=== PATIENT | male | born 1955 | race Caucasian/White ===

== ENCOUNTER 2022-02-19 14:35 | Emergency (ER) | payer SELFPAY ==
[~2022-02-19] VITALS: Ht 190.5 cm; Wt 80.7 kg
[2022-02-19 14:35] VITALS: BP 174/102
--- NOTE | 2022-02-19 14:35 | NUR ---
ARRIVAL PATIENT ARRIVED TO ED6 AMBULATORY, C/O SHORTNESS OF BREATH OFF AND ON FOR THE PAST 5 WEEKS, HAS BEEN SEEN BY HIS PCP IN [place] AND GIVEN INHALERS AND ANTIBIOTICS, PATIENT FEELS LIKE NOTHING IS HELPING, CAME TO THIS ED FOR FURTHER EVAL, VITAL SIGNS TAKEN AN DOCTOR NOTIFIED OF PATIENT'S ARRIVAL.
[2022-02-19] MEDS ORDERED: SOLU-MEDROL IM STA (14:46)
[2022-02-19] MEDS ORDERED: DUO 0.5-3(2.5) MG/3 ML IH STA (14:46)
--- NOTE | 2022-02-19 14:48 | PCM.EKG ---
[facility] Test Date: 2022-02-19 Test Time: 14:39:15 Pat Name: MICHELLE NAGEL Department: Room: Gender: M Senior Strategy Analyst: EC : 1955 Requested By: JAKUB KRUSE Order Number: [id number] Reading MD: Liborio Kruse Measurements Intervals [place] Rate: 102 P: 115 SC: 151 QRS: -74 QRSD: 101 T: 45 QT: 337 QTc: 439 Interpretive Statements Sinus tachycardia Probable left atrial enlargement Left anterior fascicular block Abnormal R-wave progression, late transition No previous ECG available for comparison Electronically Signed On 02-19-2022 15:40:13 CDT by Liborio Kruse Please click the below link to view image of tracing.
[2022-02-19] MEDS ORDERED: SOLU-MEDROL ONE (14:53)
[2022-02-19] MEDS ORDERED: DUO 0.5-3(2.5) MG/3 ML IH ONE (14:53)
[2022-02-19 14:55] LABS: BASOPHIL % 0.1 % (0.0-0.2); EOSINOPHIL % 0.2 % (0.0-5.0); LYMPHOCYTES % 10.2 % (24.0-44.0); MEAN CORP HGB 30.1 pg (26-34); MONOCYTES # 0.8 10^3/uL (0.3-0.8); MONOCYTES % 5.9 % (5.0-12.0); NEUTROPHIL # 10.6 10^3/uL (1.8-7.7); NEUTROPHILS % 83.5 % (41.0-85.0); PLATELET COUNT 307 10^3/uL (150-400); RED CELL DISTRIBUTION WIDTH 13.1 % (11.5-14.5)
[2022-02-19 15:21] LABS: CARBON DIOXIDE 28.4 mmol/L (20.0-32)
[2022-02-19] MEDS ORDERED: NS 1000ML 1,000 ML STA (15:24)
[2022-02-19] MEDS ORDERED: NS 1000ML 1,000 ML ONE (15:38)
--- NOTE | 2022-02-19 15:49 | ER.PDOC ---
General Chief Complaint: Dyspnea/Respdistress Stated Complaint: SOB Time seen by MD: 14:40 Source: patient Exam Limitations: no limitations History of Present Illness Initial Comments Patient is a 66-year-old man who states that he has no past medical problems but presents with about 2 months worth of shortness of breath that acutely worsened over the past 5 days. Patient states that he is currently on antibiotics doxycycline forPneumonia and has never been told that he has COPD but has been a lifelong 2 time pack-a-day smoker. Patient states that he has some mild shortness of breath with associated nonproductive cough made worse with activity better with rest. Patient states that the antibiotics have not really helped him very much so he decided to come to the ER for more assessment.Patient denies any fevers Allergies: Coded Allergies: No Known Allergies (Unverified , 02/19/22) Home Meds No Active Prescriptions or Reported Meds Past Medical History Medical History: no pertinent history Surgical History: appendectomy, other Family History Significant Family History: no pertinent family hx Social History Smoking: greater than 1 pack/day Alcohol Use: none Drug Use: none Reviewed Nursing Reviewed: Vital Signs, Abn. Noted, Nursing Assessment Review of Systems Constitutional: malaise EENTM: denies no symptoms reported, denies see HPI, denies eye pain, denies blurred vision, denies tearing, denies double vision, denies ear pain, denies ea r discharge, denies nose pain, denies nose congestion, denies throat pain, denies throat swelling, denies mouth pain, denies mouth swelling, denies other Respiratory: cough, shortness of breath Cardiovascular: denies no symptoms reported, denies see HPI, denies chest pain, denies edema, denies palpitations, denies syncope, denies other Gastrointestinal: denies no symptoms reported, denies see HPI, denies abdominal pain, denies constipation, denies diarrhea, denies nausea, denies vomiting, denies other Genitourinary: denies no symptoms reported, denies see HPI, denies discharge, denies dysuria, denies frequency, denies hematuria, denies pain, denies other Musculoskeletal: denies no symptoms reported, denies see HPI, denies back pain, denies gout, denies joint pain, denies joint swelling, denies muscle pain, denies muscle stiffness, denies neck pain, denies other Skin: denies no symptoms reported, denies see HPI, denies change in color, denies change in hair/nails, denies dryness, denies lesions, denies lumps, denies rash, denies other Psychiatric/Neurological: denies no symptoms reported, denies see HPI, denies anxiety, denies depressed, denies emotional problems, denies headache, denies numbness, denies paresthesia, denies pre-existing deficit, denies seizure, denies tingling, denies tremors, denies weakness, denies other Endocrine: denies no symptoms reported, denies see HPI, denies excessive sweating, denies flushing, denies intolerance to cold, denies intolerance to heat, denies increased hunger, denies increased thrist, denies increased urine, denies unexplained weight gain, denies unexplaned weight loss, denies other Hematologic/Lymphatic: denies no symptoms reported, denies see HPI, denies anemia, denies blood clots, denies easy bleeding, denies easy bruising, denies swollen glands, denies other Physical Exam General Appearance: Anxious HEENT: PERRL/EOMI, Normal ENT Inspection (Other than poor dentition), TMs Normal, Pharynx Normal Neck: Non-Tender, Full Range of Motion, Supple, Normal Inspection Respiratory: rhonchi (In all lung fountain sound chronically ill), wheezing Cardiovascular: Normal Peripheral Pulses, No Edema, No Murmur, Tachycardia Gastrointestinal: Normal Bowel Sounds, No Organomegaly, No Pulsatile Mass, Non Tender, Soft Extremities: Normal Range of Motion, Non-Tender, Normal Inspection, No Pedal Edema, No Calf Tenderness, Normal Capillary Refill Neurologic/Psychiatric: administrator health care facility II-XII NML as Tested, No Motor/Sensory Deficits, Alert, Normal Mood/Affect, Oriented x 3 Skin: Normal Color, Warm/Dry Lymphatic: No Adenopathy Results/Orders Results/Orders Orders - JAKUB CLARK MD Cbc With Auto Diff (02/19/22 14:40) Comprehensive Metabolic Panel (02/19/22 14:40) Probnp B-Type Form Setter Steel Forms (02/19/22 14:40) D-Dimer (02/19/22 14:40) Xr Chest 1v (02/19/22 14:40) Ekg-Routine (02/19/22 14:40) Saline Lock (02/19/22 14:40) Troponin I High Sensitivity (02/19/22 14:40) Ipratropium/Albuterol Sulfate (Duo 0.5-3 (02/19/22 14:46) Methylprednisolone Sod Succ (Solu-Medrol (02/19/22 14:46) Methylprednisolone Sod Succ (Solu-Medrol (02/19/22 14:53) Ipratropium/Albuterol Sulfate (Duo 0.5-3 (02/19/22 14:53) 0.9 % Sodium Chloride (Ns 1000ml) (02/19/22 15:24) Vital Signs Date Time Temp Pulse Resp B/P (MAP) Pulse Ox O2 Delivery O2 Flow Rate FiO2 02/19/22 14:58 103 18 94 Room Air* 0 21 02/19/22 14:58 102 20 94 Room Air* 0 21 02/19/22 14:35 98.2 111 20 174/102 (126) 94 Room Air* 0 21 02/19/22 14:35 98.2 111 20 94 02/19/22 14:35 98.2 111 20 Administered Medications Medications (Trade) Dose Ordered Sig/James Route PRN Reason Start Time Stop Time Status Last Admin Dose Admin Albuterol/ Ipratropium (Duo 0.5-3(2.5) Mg/3 ml) 3 ml STAT STAT IH 02/19/22 14:46 02/19/22 14:49 DC 02/19/22 14:46 3 ML Methylprednisolone Sodium Succinate (Solu-Medrol) 125 mg STAT STAT IM 02/19/22 14:46 02/19/22 14:49 DC 02/19/22 14:57 125 MG Sodium Chloride 1,000 ml @ 0 mls/hr Q0M STAT IV 02/19/22 15:24 02/19/22 15:25 UNV 02/19/22 15:38 1,200 MLS/HR Laboratory Tests Test 02/19/22 14:52 White Blood Count 12.7 10^3/uL (4.5-11.0) H Red Blood Count 4.79 10^6/uL (4.50-5.90) Hemoglobin 14.4 g/dL (13.9-16.3) Hematocrit 44.1 % (37.0-53.0) Mean Corpuscular Volume 92.1 fL (78-100) Mean Corpuscular Hemoglobin 30.1 pg (26-34) Mean Corpuscular Hemoglobin Concent 32.7 g/dL (33-36.5) L Red Cell Distribution Width 13.1 % (11.5-14.5) Platelet Count 307 10^3/uL (150-400) Mean Platelet Volume 9.5 fL (7.8-11.0) Neutrophils (%) (Auto) 83.5 % (41.0-85.0) Lymphocytes (%) (Auto) 10.2 % (24.0-44.0) L Monocytes (%) (Auto) 5.9 % (5.0-12.0) Neutrophils # (Auto) 10.6 10^3/uL (1.8-7.7) H Lymphocytes # (Auto) 1.30 10^3/uL1 (1.0-4.8) Monocytes # (Auto) 0.8 10^3/uL (0.3-0.8) Absolute Immature Granulocyte (auto 0.01 10^3 u/L (0-2) Absolute Eosinophils (auto) 0.0 10^3/uL (0.0-0.2) Immature Granulocytes % 0.10 % (0.00-0.50) Eosinophils % 0.2 % (0.0-5.0) Basophils % 0.1 % (0.0-0.2) Basophils # 0.0 10^3/uL (0.0-0.1) D-Dimer 0.38 mg/L (0.19-0.49) Sodium Level 129 mmol/L (132-145) L Potassium Level 4.1 mmol/L (3.6-5.2) Chloride Level 92.0 mmol/L (96-109) L Carbon Dioxide Level 28.4 mmol/L (20.0-32) Anion Gap 12.7 Blood Urea Nitrogen 11 mg/dL (7-18) Creatinine 0.76 mg/dL (0.59-1.40) Estimated GFR () 124.9 (>/=60) Est GFR (CKD-EPI)(Non-Afr [place]ian) 103.3 (>/=60) BUN/Creatinine Ratio 14.0 Glucose Level 164 mg/dL (70-110) H Calcium Level 9.8 mg/dL (8.4-10.5) Total Bilirubin 0.8 mg/dL (0.2-1.0) Aspartate Amino Transferase (AST) 16 U/L (0-35) Alanine Aminotransferase (ALT) 27 U/L (12-78) Alkaline Phosphatase 103 U/L (50-136) Troponin I High Sensitivity 10 ng/L (0-75) Pro-B-Type Natriuretic Peptide 403 pg/mL (0-125) H Total Protein 8.7 g/dL (6.4-8.2) H Albumin 3.1 g/dL (3.4-5.0) L Globulin 5.6 Albumin/Globulin Ratio 0.553 Progress Progress Patient here with cough shortness of breath this is likely COPD this could be the new onset for the patient however is little tachycardic study to rule out PE patient has no pneumonia already on doxycycline however has not been given steroids or anything for cough suppressant. Patient is not desaturating thus I do not think that he will need oxygen however will give patient a breathing treatment as he does have wheezingThus we will treat this like COPD exacerbation disposition can go either way at this time. [id number] is much improved breathing is much better will anticipate discharge is pending chest x-ray to rule out anything that we may have missed a dimer was normal so no need for further PE work-up. 1557 reassessmentPatient doing much better much improved discussed follow-up with primary care he voiced understanding will discharge with steroids as well as metered-dose inhaler. Patient already on antibiotics. ER DEPART Departure Time of Disposition: 15:58 Disposition: 01 HOME / SELF CARE / HOMELESS Impression: Primary Impression: COPD exacerbation Condition: Improved Patient Instructions: Chronic Obstructive Pulmonary Disease Referrals: PCP,UNKNOWN (PCP) PRIMARY CARE PROVIDER Additional Instructions: Please take all medications as prescribed. If you have any new persistent or worsening symptoms or concerns please seek medical attention. Please follow-up with your primary care provider within 1 week. Scripts No Active Prescriptions or Reported Meds Duration or Time Spent with Pa: 45 JAKUB CLARK MD Feb 19, 2022 15:49
--- NOTE | 2022-02-19 15:54 | DIREP ---
PROCEDURE:CHEST 1 VIEW COMPARISON:None. INDICATIONS:sob FINDINGS: LUNGS/PLEURA:Left basilar patchy opacities concerning for infiltrate. No pleural effusion or pneumothorax. Hyperinflated lung fountain. VASCULATURE:Normal. Unremarkable pulmonary vasculature. CARDIAC:Normal. No cardiac silhouette abnormality or cardiomegaly. MEDIASTINUM:Normal. No visible mass or adenopathy. BONES:Degenerative change without evidence of acute osseus abnormality. OTHER:Negative. CONCLUSION: 1. Left basilar infiltrates. Dictated by: Rikki Hdadad MD on 02/19/2022 at 03:53 PM
[2022-02-19 15:57] VITALS: BP 147/85
== END 2022-02-19 16:04 | disposition home or self-care (01) ==
LOC: ER 14:35
DX: J44.1 Chronic obstructive pulmonary disease with (acute) exacerbation (principal); F17.200 Nicotine dependence, unspecified, uncomplicated; Z90.49 Acquired absence of other specified parts of digestive tract; Z88.1 Allergy status to other antibiotic agents
CPT/HCPCS: 99285; 96360; 71045; 80053; 85025; 36415; 85379; 84484; 83880; 93005; 94640; 96372; J7030; J2930